=== PATIENT | female | born 1960 | race Caucasian/White ===

== ENCOUNTER 2017-04-22 18:47 | Emergency (ER) | payer BC ==
[2017-04-22 19:35] VITALS: BP 136/75
--- NOTE | 2017-04-22 20:34 | UC ---
Throat Pain/Nasal Ken HPI - HPI Summary HPI Summary: This is an otherwise healthy 56 yo female who presents with a 3d h/o sinus pressure, congestion and cough. No fever or chills. She has been using Dayquil /Nyquil without relief. No ST. Mild SOB. No abd pain or nausea. She vomited once yesterday after a coughing fit. No diarrhea. - History of Current Complaint Chief Complaint: UCGeneralIllness Stated Complaint: SINUS UPPER RESPIRATORY COMPLAINT Pain Intensity: 0 Pain Scale Used: 0-10 Numeric - Allergies/Home Medications Allergies/Adverse Reactions: Allergies Allergy/AdvReac Type Severity Reaction Status Date / Time Codeine Allergy sick to Verified 04/22/17 19:34 stomach PMH/Surg Hx/FS Hx/Imm Hx Previously Healthy: Yes - Surgical History Surgical History: Yes Surgery Procedure, Year, and Place: hysterectomy, knee surgery - Family History Known Family History: Positive: None - Social History Alcohol Use: Rare Substance Use Type: None Smoking Status (MU): Heavy Every Day Tobacco Smoker Type: Cigarettes Amount Used/How Often: 1 PPD Length of Time of Smoking/Using Tobacco: 30 YRS Review of Systems Constitutional: Fatigue Skin: Negative Eyes: Negative ENT: Ear Ache, Sinus Congestion Respiratory: Cough Cardiovascular: Negative Gastrointestinal: Negative Genitourinary: Negative Motor: Negative Neurovascular: Negative Musculoskeletal: Negative Neurological: Negative Psychological: Negative All Other Systems Reviewed And Are Negative: Yes Physical Exam Triage Information Reviewed: Yes Appearance: Well-Appearing Vital Signs: Initial Vital Signs Temp 98.4 F 04/22/17 19:31 Pulse 83 04/22/17 19:31 Resp 16 04/22/17 19:31 BP 136/75 04/22/17 19:31 Pulse Ox 98 04/22/17 19:31 Vital Signs Reviewed: Yes ENT: Positive: Nasal congestion - turbinates edematous, TM dull, TM red - mild R TM, Other: - frontal sinus TTP, L>R. Negative: Pharyngeal erythema, Tonsillar swelling, Tonsillar exudate Neck: Positive: Supple, Nontender, Enlarged Nodes @ - cervical anterior LAD Respiratory: Positive: Lungs clear, Normal breath sounds. Negative: Crackles, Rhonchi, Stridor, Wheezing Cardiovascular: Positive: RRR, No Murmur Abdomen Description: Positive: Soft Musculoskeletal: Positive: Strength Intact Skin: Positive: rashes Throat Pain/Nasal Course/Dx - Course Course Of Treatment: This is a 56 yo female with a 3d h/o sinus pain, congestion with L frontal TTP and mild erythema of R TM. Treat for acute sinusitis - Differential Dx/Diagnosis Differential Diagnosis/HQI/PQRI: Laryngitis, Otitis Media, Pharyngitis, Tonsillitis, URI Provider Diagnoses: 1. Acute sinusitis Discharge - Discharge Plan Condition: Stable Disposition: HOME Prescriptions: Amoxicillin/Clavulanate TAB* [Augmentin TAB 875*] 875 mg PO BID #14 tab Patient Education Materials: Sinusitis (ED) Referrals: Daryl Stone MD [Primary Care Provider] - If Needed Additional Instructions: Instructions: 1. Take antibiotics as directed 2. Cont use of decongestants and add Afrin nasal spray for additional congestion relief
== END 2017-04-22 20:24 | disposition home or self-care (01) ==
LOC: UCCORT 18:47
DX: J01.90 Acute sinusitis, unspecified (principal); R53.83 Other fatigue; Z90.710 Acquired absence of both cervix and uterus; Z88.5 Allergy status to narcotic agent; F17.210 Nicotine dependence, cigarettes, uncomplicated
CPT/HCPCS: 99202; G0463